=== PATIENT | female | born 1935 | race Caucasian/White ===

== ENCOUNTER 2022-04-09 14:30 | Inpatient (IN) | payer MEDICARE ==
[~2022-04-09] VITALS: Ht 165.1 cm; Wt 67.4 kg
[2022-04-09] MEDS ORDERED: CLOP75TA2 PO (15:20)
[2022-04-09] MEDS ORDERED: LOSA25TA13 PO (15:20)
[2022-04-09] MEDS ORDERED: METO100T5 PO (15:20)
[2022-04-09] MEDS ORDERED: ROSU20TA5 PO (15:20)
[2022-04-09] MEDS ORDERED: NITR50CA34 PO (15:20)
[2022-04-09] MEDS ORDERED: SPIR-10 PO (15:20)
[2022-04-09 16:20] LABS: BASO % 0.4 % (0.0-1.0); EOS # 0.1 10^3/uL (0.0-0.5); EOS % 1.5 % (0.0-3.0); HEMATOCRIT 46.6 % (36.0-47.0); HEMOGLOBIN 14.2 g/dl (12.0-15.5); LYMPH # 1.4 10^3/uL (1.5-5.0); LYMPH % 15.2 % (24.0-44.0); MEAN CORPUSCULAR HEMOGLOBIN 27.8 pg (27.0-33.0); MEAN CORPUSCULAR HGB CONC 30.5 g/dl (32.0-36.5); MEAN CORPUSCULAR VOLUME 91.4 fl (80.0-96.0); MONO # 0.8 10^3/uL (0.0-0.8); MONO % 8.4 % (2.0-8.0); NEUTROPHILS # 6.8 10^3/uL (1.5-8.5); NEUTROPHILS % 73.7 % (36.0-66.0); PLATELET COUNT, AUTOMATED 212 10^3/uL (150-450); WHITE BLOOD COUNT 9.2 10^3/uL (4.0-10.0)
[2022-04-09 16:32] LABS: INR 0.97; PROTHROMBIN TIME 13.1 SECONDS (12.5-14.5)
[2022-04-09 16:33] LABS: PARTIAL THROMBOPLASTIN TIME 29.2 SECONDS (24.8-34.2)
[2022-04-09 16:46] LABS: CK-MB VALUE MASS < 1.0 NG/ML (<3.6); CPK CREATINE PHOSPHOKINASE 42 U/L (26-192); MB/CK RELATIVE INDEX 2.38 (< OR =4)
[2022-04-09 16:53] LABS: ALBUMIN 4.3 GM/DL (3.2-5.2); BILIRUBIN,DIRECT 0.3 MG/DL (0.0-0.2); BILIRUBIN,TOTAL 1.1 MG/DL (0.2-1.0); CALCIUM LEVEL 9.9 MG/DL (8.8-10.2); CREATININE FOR GFR 1.54 MG/DL (0.55-1.30); ETHYL ALCOHOL (ETHANOL) 0.006 % (0.000-0.010); POTASSIUM SERUM 4.6 MEQ/L (3.5-5.1); THYROID STIMULATING HORMONE 1.25 uIU/ML (0.358-3.740); TOTAL PROTEIN 7.5 GM/DL (6.4-8.2)
[2022-04-09] MEDS ORDERED: cefTRIAXone SOD 1 GM in D5W MINI-BAG PLUS 50 ML IV ONE (18:35)
[2022-04-09] MEDS ORDERED: ACETAMINOPHEN TAB 650MG DOSE (2X325MG) PO PRN (19:30)
[2022-04-09] MEDS ORDERED: HOME MED LIST COMPLETE! XX SCH (19:30)
[2022-04-09] MEDS ORDERED: NS 1,000 ML IV SCH (21:10)
[2022-04-09] MEDS: CLOPIDOGREL 75 MG TAB PO SCH (21:30)
[2022-04-09] MEDS: ROSUVASTATIN 10 MG TAB (CRESTOR) PO SCH (21:30)
[2022-04-09] MEDS: METOPROLOL TARTRATE 100MG TAB PO SCH (22:21)
[2022-04-10 08:41] LABS: HEMOGLOBIN 12.7 g/dl (12.0-15.5); MEAN CORPUSCULAR HEMOGLOBIN 28.3 pg (27.0-33.0); MEAN CORPUSCULAR VOLUME 91.3 fl (80.0-96.0); PLATELET COUNT, AUTOMATED 192 10^3/uL (150-450); RED BLOOD COUNT 4.49 10^6/uL (4.00-5.40); WHITE BLOOD COUNT 8.2 10^3/uL (4.0-10.0)
[2022-04-10 09:17] LABS: CALCIUM LEVEL 9.2 MG/DL (8.8-10.2); CREATININE FOR GFR 1.36 MG/DL (0.55-1.30); GLOMERULAR FILTRATION RATE 39.2 (>32); POTASSIUM SERUM 3.9 MEQ/L (3.5-5.1)
[2022-04-10 09:25] LABS: CHOLESTEROL RISK RATIO 3.075 (<5)
[2022-04-10] MEDS: HEPARIN SOD (PORCINE) 5000UNITS/ML 1ML VIAL/SYRINGE SC SCH ×2 (10:20→21:10)
[2022-04-10] MEDS: METOPROLOL TARTRATE 100MG TAB PO SCH ×2 (10:20→21:10)
[2022-04-10] MEDS: cefTRIAXone SOD 1 GM in D5W MINI-BAG PLUS 50 ML IV SCH (10:21)
[2022-04-10 15:50] VITALS: BP 153/73
[2022-04-10 21:00] VITALS: BP 153/77
[2022-04-10] MEDS: ROSUVASTATIN 10 MG TAB (CRESTOR) PO SCH (21:10)
[2022-04-10] MEDS: CLOPIDOGREL 75 MG TAB PO SCH (21:10)
[2022-04-11 06:00] VITALS: BP 162/84
[2022-04-11 07:38] LABS: HEMOGLOBIN 12.8 g/dl (12.0-15.5); MEAN CORPUSCULAR HEMOGLOBIN 27.9 pg (27.0-33.0); MEAN CORPUSCULAR HGB CONC 30.5 g/dl (32.0-36.5); MEAN CORPUSCULAR VOLUME 91.5 fl (80.0-96.0); PLATELET COUNT, AUTOMATED 189 10^3/uL (150-450); RED BLOOD COUNT 4.59 10^6/uL (4.00-5.40); WHITE BLOOD COUNT 7.7 10^3/uL (4.0-10.0)
[2022-04-11 08:22] LABS: CALCIUM LEVEL 9.5 MG/DL (8.8-10.2); CREATININE FOR GFR 1.32 MG/DL (0.55-1.30); GLOMERULAR FILTRATION RATE 40.6 (>32); POTASSIUM SERUM 4.4 MEQ/L (3.5-5.1)
[2022-04-11] MEDS: cefTRIAXone SOD 1 GM in D5W MINI-BAG PLUS 50 ML IV SCH (08:45)
[2022-04-11 08:46] VITALS: BP 177/85
[2022-04-11] MEDS: METOPROLOL TARTRATE 100MG TAB PO SCH (08:46)
[2022-04-11] MEDS: HEPARIN SOD (PORCINE) 5000UNITS/ML 1ML VIAL/SYRINGE SC SCH (08:46)
[2022-04-11] MEDS ORDERED: LOSARTAN 25 MG TAB PO SCH (09:00)
[2022-04-11] MEDS ORDERED: CEFD300C41 PO (11:16)
[2022-04-11 11:37] VITALS: BP 128/68
== END 2022-04-11 13:00 | disposition home or self-care (01) | DRG 689 ==
LOC: M ED 14:30 → M ED INP 19:27 → ENRESERV 04-10 14:03 → M MSPAV 04-10 15:51
PROVIDERS: ADMIT Internal Medicine; ATTEND Internal Medicine
DX: N39.0 Urinary tract infection, site not specified (principal); G93.41 Metabolic encephalopathy; N18.9 Chronic kidney disease, unspecified; R19.7 Diarrhea, unspecified; I25.10 Atherosclerotic heart disease of native coronary artery without angina pectoris; E78.5 Hyperlipidemia, unspecified; I12.9 Hypertensive chronic kidney disease with stage 1 through stage 4 chronic kidney disease, or unspecified chronic kidney disease; H35.30 Unspecified macular degeneration; Z66 Do not resuscitate; Z95.0 Presence of cardiac pacemaker; Z79.02 Long term (current) use of antithrombotics/antiplatelets; Z79.899 Other long term (current) drug therapy

== ENCOUNTER → 2022-12-20 | Outpatient (REF) | payer MEDICARE ==
[~2022-12-20] MED LIST: CEFD300C41 PO; CLOP75TA2 PO; LOSA25TA13 PO; METO100T5 PO; NITR50CA34 PO; ROSU20TA61 PO; SPIR-10 PO
== END ==
LOC: M SFHCDERM 10:43
PROVIDERS: ATTEND Nurse Practitioner Family
DX: C44.719 Basal cell carcinoma of skin of left lower limb, including hip (principal); L57.0 Actinic keratosis; C44.729 Squamous cell carcinoma of skin of left lower limb, including hip